=== PATIENT | female | born 1995 ===

== ENCOUNTER 2016-09-13 14:38 | Emergency (ER) | payer MEDICAID ==
[2016-09-13 14:42] VITALS: BMI 25.4
[2016-09-13 14:46] VITALS: RESP 18; O2SAT 99
[2016-09-13 15:31] LABS: BASO % 0.7 % (0.0-2.0); EOS # 0.1 K/uL (0.0-0.7); EOS % 1.9 % (0.0-4.0); LYMPH # 1.2 K/uL (1.0-4.3); LYMPH % 33.9 % (20.0-40.0); MEAN CELL VOLUME 87.2 fL (81.0-99.0); MEAN CORPUSCULAR HEMOGLOBIN 28.6 pg (27.0-31.0); MEAN CORPUSCULAR HGB CONC 32.8 g/dL (33.0-37.0); MEAN PLATELET VOLUME 7.7 fL (7.2-11.7); MONO # 0.3 K/uL (0.0-0.8); MONO % 7.3 % (0.0-10.0); NRBC % 0.1 % (0.0-2.0); RED CELL DISTRIBUTION WIDTH 12.9 % (11.5-14.5); WHITE BLOOD COUNT 3.6 K/uL (4.8-10.8)
[2016-09-13 15:48] LABS: CHLORIDE 97 mmol/L (98-107)
[2016-09-13 15:49] LABS: POTASSIUM 3.1 mmol/L (3.6-5.2); SODIUM 139 mmol/L (132-148)
[2016-09-13 15:51] LABS: ALB/GLOB RATIO 1.4 (1.0-2.1); AST/SGOT 24 U/L (14-36); BILIRUBIN,TOTAL 0.7 mg/dL (0.2-1.3); BLOOD UREA NITROGEN 14 mg/dL (7-17); CARBON DIOXIDE 25 mmol/L (22-30); GFR AFRICAN-AMERICAN > 60; TOTAL PROTEIN 7.6 g/dL (6.3-8.3)
[2016-09-13 15:52] LABS: ALKALINE PHOSPHATASE 45 U/L (38-126); ALT/SGPT 20 U/L (9-52); CALCIUM 8.7 mg/dl (8.6-10.4); GLUCOSE,RANDOM 83 mg/dL (65-105)
[2016-09-13] MEDS ORDERED: Potassium Chloride 20 mEq ER Tab PO STA (16:17)
[2016-09-13 16:21] LABS: RBC URINE 20 /hpf (0-3); URINE BACTERIA FEW (<OCC); URINE BILIRUBIN NEGATIVE (NEGATIVE); URINE BLOOD 1+ (NEGATIVE); URINE COLOR Yellow (YELLOW); URINE GLUCOSE (UA) NORMAL (Normal); URINE KETONE NEGATIVE (NEGATIVE); URINE LEUKOCYTE ESTERASE TRACE Leu/uL (Negative); URINE PROTEIN NEGATIVE (NEGATIVE); URINE UROBILINOGEN NORMAL mg/dL (0.2-1.0); WBC URINE 6 /hpf (0-5)
--- NOTE | 2016-09-13 16:32 | US ---
HISTORY: bleeding pain COMPARISON: None available. TECHNIQUE: Transabdominal and endovaginal ultrasound examination of the pelvis was obtained FINDINGS: UTERUS: Measures 10.4 x 5.8 x 5.3 cm. Normal in size and appearance. No fibroid or other mass lesion seen. ENDOMETRIUM: There is cystic structure in the endometrium likely represent and barely gestational sac contains yolk sac. The presumed gestational sac measures 1.1 x 0.8 x 1.1 centimeter. The yolk sac measures 3.5 millimeter. CERVIX: No cervical abnormality identified. RIGHT OVARY: Measures 2.8 x 2.6 x 1.9 cm. No solid mass. Normal flow. LEFT OVARY: Measures 3.5 x 1.9 x 3.2 cm. No solid mass. Normal flow. There is 2 x 1.3 x 1.8 centimeters cyst likely represent corpus luteum cyst. FREE FLUID: No significant free fluid noted. OTHER FINDINGS: None. IMPRESSION: An early intrauterine gestational sac contains yolk sac. No evidence of acute pathology in the ovaries. Small cyst at the left ovary may represent corpus luteum cyst.
--- NOTE | 2016-09-13 16:45 | C.PDOC ---
History Of Present Illness 20-year-old female, presents to the emergency department with complaints of vaginal cramping that started three days ago, which is associated with vaginal spotting, only when she wipes after using the bathroom. Denies nausea/vomiting, dizziness, or any other associated symptoms. No other complaints at this time. Time Seen by Provider: 09/13/16 15:00 Chief Complaint (Nursing): Female Genitourinary History Per: Patient History/Exam Limitations: no limitations Onset/Duration Of Symptoms: Days Severity: Mild Location Of Pain/Discomfort: Suprapubic Past Medical History Reviewed: Historical Data, Nursing Documentation, Vital Signs Vital Signs: Last Vital Signs Temp 98.1 F 09/13/16 16:50 Pulse 70 09/13/16 16:50 Resp 18 09/13/16 16:50 BP 111/68 09/13/16 16:50 Pulse Ox 99 09/13/16 17:06 - Medical History PMH: Asthma Surgical History: Tonsillectomy - [facility] Procedures DELIVERY OF PRODUCTS OF CONCEPTION, EXTERNAL APPROACH (04/26/15) LINEAR REP LID LACER (02/25/13) Family History: States: Unknown Family Hx - Social History Hx Tobacco Use: No Hx Alcohol Use: No Hx Substance Use: No - Immunization History Hx Tetanus Toxoid Vaccination: No Hx Influenza Vaccination: Yes Hx Pneumococcal Vaccination: No Review Of Systems Except As Marked, All Systems Reviewed And Found Negative. Constitutional: Negative for: Fever, Chills Cardiovascular: Negative for: Chest Pain, Palpitations Respiratory: Negative for: Cough, Shortness of Breath Gastrointestinal: Positive for: Abdominal Pain. Negative for: Nausea, Vomiting Genitourinary: Positive for: Vaginal Bleeding. Negative for: Dysuria, Frequency , Vaginal Discharge Musculoskeletal: Negative for: Back Pain Skin: Negative for: Rash Neurological: Negative for: Weakness, Numbness, Headache, Dizziness Physical Exam - Physical Exam Appears: Non-toxic, No Acute Distress Skin: Warm, Dry, No Rash Head: Atraumatic, Normacephalic Eye(s): bilateral: Normal Inspection, EOMI Nose: Normal Oral Mucosa: Moist Lips: Normal Appearing Neck: Normal ROM Cardiovascular: Rhythm Regular Respiratory: Normal Breath Sounds, No Accessory Muscle Use Gastrointestinal/Abdominal: Soft, Tenderness (suprapubic), No Guarding, No Rebound Back: No CVA Tenderness, No Vertebral Tenderness Extremity: Normal ROM Neurological/Psych: Oriented x3, Normal Speech ED Course And Treatment - Laboratory Results Result Diagrams: 09/13/16 15:25 09/13/16 15:25 O2 Sat by Pulse Oximetry: 99 Progress Note: Bloodwork, US Transvaginal and UA ordered and reviewed. Discussed signs and concerns of threatened w/ patient, and asked to return to ED or see OBGYN in 1-2 days for repeat beta count. Instructed to return if symptoms persist or worsen. Disposition - Disposition Disposition: HOME/ ROUTINE Disposition Time: 16:43 Condition: STABLE Additional Instructions: Your beta HCG was 6,000 today. Follow up with the clinic/ ER in 2-3 days for further evaluation and labs. Take medications as prescribed. Return to the emergency department at any time if symptoms persist or worsen. You may call [facility] for any assistance [phone]. Prescriptions: Nitrofurantoin Macrocrystals [Macrobid] 1 cap PO BID #10 cap Multivit/Folic Acid/I [ Plus] 1 tab PO DAILY #30 tab Instructions: Threatened Miscarriage (ED) - Clinical Impression Clinical Impression: First trimester bleeding - Scribe Statement The provider has reviewed the documentation as recorded by the Deaj Villanueva All medical record entries made by the Scribe were at my direction and personally dictated by me. I have reviewed the chart and agree that the record accurately reflects my personal performance of the history, physical exam, medical decision making, and the department course for this patient. I have also personally directed, reviewed, and agree with the discharge instructions and disposition.
[2016-09-13] MEDS ORDERED: Potassium Chloride 20 mEq ER Tab PO ONE (16:51)
[2016-09-13 17:06] VITALS: BP 111/68; PULSE 70; TEMP 98.1
== END 2016-09-13 16:55 | disposition home or self-care (01) ==
LOC: C.ER 14:38
DX: O20.9 Hemorrhage in early pregnancy, unspecified (principal); Z3A.00 Weeks of gestation of pregnancy not specified

== ENCOUNTER 2017-01-29 09:03 | Emergency (ER) | payer MEDICAID ==
[2017-01-29 09:13] VITALS: BMI 23.4
[2017-01-29 09:17] VITALS: BP 104/75; PULSE 72; RESP 20; TEMP 98.4; O2SAT 98
--- NOTE | 2017-01-29 10:27 | C.PDOC ---
History Of Present Illness 21 yr old female presents to the ER stating she woke up this morning with left eyelid swelling. Patient denies itch, FB sensation, pain with eye movement, vision changes, fever, ear pain, headache or dizziness. Time Seen by Provider: 01/29/17 09:22 Chief Complaint (Nursing): Eye Problem History Per: Patient History/Exam Limitations: no limitations Onset/Duration Of Symptoms: Sudden Onset (This morning ) Injury To Eye?: No Quality: denies: "Pain" Past Medical History Reviewed: Historical Data, Nursing Documentation, Vital Signs Vital Signs: Last Vital Signs Temp 98.4 F 01/29/17 09:13 Pulse 72 01/29/17 09:13 Resp 20 01/29/17 09:13 BP 104/75 01/29/17 09:13 Pulse Ox 98 01/29/17 10:29 - Medical History PMH: Asthma Surgical History: Tonsillectomy - [facility] Procedures DELIVERY OF PRODUCTS OF CONCEPTION, EXTERNAL APPROACH (04/26/15) LINEAR REP LID LACER (02/25/13) Family History: States: No Known Family Hx - Social History Hx Tobacco Use: No Hx Alcohol Use: No Hx Substance Use: No - Immunization History Hx Tetanus Toxoid Vaccination: No Hx Influenza Vaccination: Yes Hx Pneumococcal Vaccination: No Review Of Systems Except As Marked, All Systems Reviewed And Found Negative. Constitutional: Negative for: Fever Eyes: Positive for: Other ((+) Left eyelid swelling ). Negative for: Pain, Vision Change ENT: Negative for: Ear Pain Neurological: Negative for: Headache, Dizziness Physical Exam - Physical Exam Appears: Non-toxic, No Acute Distress Skin: Warm, Dry, No Rash Head: Atraumatic, Normacephalic Eye(s): bilateral: PERRL, EOMI, right: Normal Inspection, left: Other (Left eyelid swelling. No FB. ) Oral Mucosa: Moist Chest: Symmetrical, No Tenderness Cardiovascular: Rhythm Regular, No Murmur Respiratory: Normal Breath Sounds, No Rales, No Rhonchi, No Stridor, No Wheezing Neurological/Psych: Oriented x3, Normal Speech, Normal Motor ED Course And Treatment O2 Sat by Pulse Oximetry: 98 (RA ) Pulse Ox Interpretation: Normal Medical Decision Making Medical Decision Making: PLAN: * Clindamycin PO Disposition - Disposition Referrals: [facility] Bruce Ortiz, [Non-Staff] - Disposition: HOME/ ROUTINE Disposition Time: 09:30 Condition: GOOD Additional Instructions: Thank you for letting us take care of you today. Your provider was Dr. Newby. You were treated for cellulitis of the eyelid. The emergency medical care you received today was directed at your acute symptoms. If you were prescribed any medication, please fill it and take as directed. It may take several days for your symptoms to resolve. Return to the Emergency Department if your symptoms worsen, do not improve, or if you have any other problems. Please contact your doctor or call one of the physicians/clinics you have been referred to that are listed on the Patient Visit Information form that is included in your discharge packet. Bring any paperwork you were given at discharge with you along with any medications you are taking to your follow up visit. Our treatment cannot replace ongoing medical care by a primary care provider (PCP) outside of the emergency department. Thank you for allowing the [facility] team to be part of your care today. Follow up with your doctor in 3 days for re-evaluation and further treatment. Prescriptions: Clindamycin [Cleocin] 300 mg PO Q6 #28 cap Instructions: Cellulitis (ED) Forms: [facility] (Macedonian) - Clinical Impression Clinical Impression: Cellulitis of eyelid - Scribe Statement The provider has reviewed the documentation as recorded by the Deja Harp Provider Attestation: All medical record entries made by the Deja were at my direction and personally dictated by me. I have reviewed the chart and agree that the record accurately reflects my personal performance of the history, physical exam, medical decision making, and the department course for this patient. I have also personally directed, reviewed, and agree with the discharge instructions and disposition.
== END 2017-01-29 09:37 | disposition home or self-care (01) ==
LOC: C.ER 09:03
DX: H00.034 Abscess of left upper eyelid (principal)